=== PATIENT | female | born 1990 | race Caucasian/White ===

== ENCOUNTER 2022-07-16 03:32 | Inpatient (IN) | payer BC ==
[2022-07-16] MEDS: Lactated Ringers 1,000 ML IV SCH ×3 (03:46→05:30)
[2022-07-16] MEDS ORDERED: Nalbuphine 10 MG/0.5 ML Syringe IVPUSH PRN (04:04)
[2022-07-16] MEDS ORDERED: Sodium Chloride 0.9% 10 ML Syringe FLUSH PRN (04:04)
[2022-07-16] MEDS ORDERED: Oxytocin/Lactated Ringers 10 UNIT/1,000 ML BAG IV SCH ×2 (04:15→08:52)
[2022-07-16] MEDS ORDERED: diphenhydrAMINE 50 MG/ML SDV IVPUSH PRN (04:43)
[2022-07-16] MEDS ORDERED: fentaNYL 100 MCG/2 ML SDV EPIDUR PRN (04:43)
[2022-07-16] MEDS ORDERED: Bupivacaine/fentaNYL/NS 100 ML Bag EPIDUR PRN (04:43)
[2022-07-16] MEDS ORDERED: ePHEDrine 50 MG/ML SDV IVPUSH PRN (04:43)
[2022-07-16] MEDS ORDERED: Bupivacaine 0.25% 10 ML SDV ONE (06:00)
[2022-07-16] MEDS ORDERED: Benzocaine/Menthol 20%-0.5% Spray 78 GM Cannister TOP PRN (08:52)
[2022-07-16] MEDS ORDERED: Magnesium Hydroxide 400 MG/5 ML Susp 30 ML Cup PO PRN (08:52)
[2022-07-16] MEDS ORDERED: Witch Hazel Medicated Pads 40/Jar TOP PRN (08:52)
[2022-07-16] MEDS ORDERED: Hydrocortisone Acetate 25 MG Supp RECTAL PRN (08:52)
[2022-07-16] MEDS ORDERED: Sodium Chloride 0.9% 10 ML Syringe FLUSH SCH (09:00)
[2022-07-16] MEDS: Ibuprofen 600 MG Tab PO PRN ×3 (09:54→23:34)
[2022-07-16] MEDS: Acetaminophen 325 MG Tab PO PRN (19:34)
[2022-07-16] MEDS: Docusate Sodium 100 MG Cap PO PRN (23:34)
[2022-07-17] MEDS: Acetaminophen 325 MG Tab PO PRN (03:00)
[2022-07-17] MEDS: Ibuprofen 600 MG Tab PO PRN (08:35)
[2022-07-17] MEDS: Prenatal Multivitamin with Calcium/Folic Acid/Iron Tab PO SCH ×2 (08:35→10:44)
[2022-07-17] MEDS: Docusate Sodium 100 MG Cap PO PRN (09:59)
== END 2022-07-17 13:35 | disposition home or self-care (01) | DRG 560 ==
LOC: JD.OBCHECK 03:32 → JD.OB 03:42 → JD.OBCHECK 04:07 → JD.OB 04:08 → OBSVTOIN 08:00 → JD.OB 08:01
PROVIDERS: ADMIT Obstetrics & Gynecology; ATTEND Obstetrics & Gynecology
PROC: 10E0XZZ Delivery of Products of Conception, External Approach (ICD-10-PCS; principal; 2022-07-16)
PROC: 0HQ9XZZ Repair Perineum Skin, External Approach (ICD-10-PCS; 2022-07-16)
PROC: 10907ZC Drainage of Amniotic Fluid, Therapeutic from Products of Conception, Via Natural or Artificial Opening (ICD-10-PCS; 2022-07-16)
PROC: 3E0R3BZ Introduction of Anesthetic Agent into Spinal Canal, Percutaneous Approach (ICD-10-PCS; 2022-07-16)
PROC: 00HU33Z Insertion of Infusion Device into Spinal Canal, Percutaneous Approach (ICD-10-PCS; 2022-07-16)
PROC: 8E0ZXY6 Isolation (ICD-10-PCS; 2022-07-16)
DX: O98.52 Other viral diseases complicating childbirth (principal); Z3A.39 39 weeks gestation of pregnancy; Z37.0 Single live birth; U07.1 COVID-19; O77.0 Labor and delivery complicated by meconium in amniotic fluid; O70.0 First degree perineal laceration during delivery
CPT/HCPCS: 36415; 51702; 59025; 59409; 85025; 86592; A9270-GY; J2590; J3010; J3490; J7120